=== PATIENT | female | born 1990 | race African-American/Black ===

== ENCOUNTER 2017-01-23 12:08 | Emergency (ER) | payer OTHER ==
[~2017-01-23] VITALS: Ht 175.3 cm; Wt 93.1 kg
[2017-01-23 12:12] VITALS: TEMP 36.3; Ht 175.3 cm; Wt 93.1 kg
[2017-01-23] MEDS ORDERED: ACETAMINOPHEN 500 MG TAB PO STA (13:03)
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
[2017-01-23 13:59] VITALS: BP 128/69; PULSE 75; O2SAT 100
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
== END 2017-01-23 13:50 | disposition home or self-care (01) ==
LOC: C.EDB 12:11 → C.EDD 13:50
DX: S06.0X9A Concussion with loss of consciousness of unspecified duration, initial encounter (principal); J45.909 Unspecified asthma, uncomplicated; Z87.09 Personal history of other diseases of the respiratory system; V48.6XXA Car passenger injured in noncollision transport accident in traffic accident, initial encounter